=== PATIENT | female | born 1950 | race American Indian/Alaskan Native ===

== ENCOUNTER 2017-11-03 06:46 | Day surgery (SDC) | payer MEDICARE ==
[~2017-11-03 06:46] MED LIST: ANCEF/STERILE WATER 2 GM/20 ML IV NR; HEPARIN 10,000 UNITS/10 ML IV ONE; MARCAINE 0.25% INFILTRATI ONE; NACL 0.9% 250ML IV ONE; NACL 0.9% IR ONE
[2017-11-03] MEDS ORDERED: NACL BACTERIOSTATIC INFILTRATI ONE (07:44)
--- NOTE | 2017-11-03 07:48 | Anesthesia Consultation ---
Anesthesia Consult and Med Hx Date of service: 11/03/17 - Airway Anesthetic Teeth Evaluation: Good, Partials (top front partial) ROM Head & Neck: Adequate Mental/Hyoid Distance: Adequate Mallampati Class: Class I Intubation Access Assessment: Good - Pulmonary Exam CTA: Yes - Cardiac Exam Cardiac Exam: RRR - Pre-Operative Health Status ASA Pre-Surgery Classification: ASA3 Proposed Anesthetic Plan: General - Pulmonary Hx Sleep Apnea: Yes ("sometimes") - Cardiovascular System Hx Hypertension: Yes (2 years) - Central Nervous System Hx Psychiatric Problems: No - Endocrine Hx End Stage Renal Disease: Yes Hx Non-Insulin Dependent Diabetes: Yes - Hematic Hx Anemia: Yes - Other Systems Hx Alcohol Use: No Hx Substance Use: No Hx Cancer: No
--- NOTE | 2017-11-03 07:48 | Anesthesia Day of Surgery ---
Anesthesia Day of Surgery - Day of Surgery Patient Examined: Yes Patient H&P Reviewed: Yes Patient is NPO: Yes
[2017-11-03] MEDS ORDERED: VERSED IV NR (08:00)
[2017-11-03] MEDS ORDERED: NACL 0.9% 1000 ML 1,000 ML IV SCH (08:00)
[2017-11-03] MEDS ORDERED: PEPCID IV NR (08:00)
[2017-11-03] MEDS ORDERED: HEPARIN 10,000 UNITS/10 ML ONE (08:03)
[2017-11-03] MEDS ORDERED: NACL P/F VIAL (10 ML) 0 ML ONE (08:04)
[2017-11-03] MEDS ORDERED: NACL 0.9% 250ML 250 ML ONE (08:04)
[2017-11-03] MEDS ORDERED: MARCAINE 0.25% INFILTRATI ONE ×3 (08:05→09:08)
[2017-11-03 08:18] LABS: Hematocrit 28.5 % (30.3-42.9); Mean Corpuscular HGB Conc 32 % (30-34); Mean Corpuscular Volume 73 fl (79-97); Red Blood Count 3.92 M/mm3 (3.65-5.03); Red Cell Distribution Width 18.1 % (13.2-15.2); White Blood Count 6.7 K/mm3 (4.5-11.0)
[2017-11-03 08:28] LABS: Calcium 8.8 mg/dL (8.4-10.2); Chloride 106.1 mmol/L (98-107); Potassium 5.5 mmol/L (3.6-5.0)
[2017-11-03 08:30] LABS: Mean Corpuscular Hemoglobin 23 pg (28-32); Platelet Count 238 K/mm3 (140-440)
[2017-11-03] MEDS ORDERED: XYLOCAINE MPF 2% ONE (08:33)
[2017-11-03] MEDS ORDERED: ZEMURON IV ONE (08:33)
[2017-11-03] MEDS ORDERED: SUBLIMAZE ONE (08:35)
[2017-11-03] MEDS ORDERED: DIPRIVAN 10 MG/ML IV ONE ×2 (08:36→08:44)
[2017-11-03] MEDS ORDERED: NACL 0.9% 250ML IV ONE (09:18)
[2017-11-03] MEDS ORDERED: HEPARIN 10,000 UNITS/10 ML IV ONE (09:18)
[2017-11-03] MEDS ORDERED: NACL 0.9% IR ONE (09:54)
[2017-11-03] MEDS ORDERED: NEO SYNEPHRINE/NS Syringe(OR USE) IV ONE (10:00)
[2017-11-03] MEDS ORDERED: ROBINUL ONE (10:02)
[2017-11-03] MEDS ORDERED: NEOSTIGMINE ONE (10:02)
[2017-11-03 10:14] LABS: Basophils % (Manual) 0 % (0.0-1.8); Blastocytes % (Manual) 0 %; Eosinophils % (Manual) 0 % (0.0-4.3); Hypochromasia 1+
[2017-11-03 10:15] LABS: Anisocytosis 1+; Diff Status Complete
--- NOTE | 2017-11-03 10:15 | Operative Report ---
Operative Report Operative Report: Date of procedure: 11/03/2017 Pre-operative diagnosis: Chronic kidney disease stage V Post-operative diagnosis: Same Procedure name(s): Laparoscopic insertion of peritoneal dialysis catheter with omentopexy Surgeon: Saleem Torre MD Vp Celebrity Services: None Anesthesia: Gen., 0.25% Marcaine EBL: Minimal Complications: None Instrument Count: Correct Indications: This is a 67-year-old female with a history of chronic kidney disease stage V in need of dialysis access. She was offered the above named procedure is a possible modality to achieve this. The risks and benefits discussed until all questions were answered. She was subsequently brought to the OR. Findings: Adhesions to the midline and upper pelvis lower abdomen Procedure: We reviewed the informed consent. The patient was placed supine upon the table. After adequate anesthesia was reached, the patient was verified , then prepped and draped in usual sterile fashion. In the right upper quadrant and made a 5 mm incision. A Veress needle was placed through the incision and the abdomen was insufflated to 50 mmHg. At this time using Optiview technique we placed a 5 mm port through the incision. We introduced the camera and examined the abdomen. No injury was noted. Under direct vision , and after infiltration of local anesthetic, we placed another 5 mm epigastric port. Using sharp dissection and electrocautery, I lysed the adhesions to the upper pelvis/lower abdomen. Using a 2-0 Vicryl on a suture passer we draped the omentum over the Vicryl suture. This was tied to the anterior abdominal wall in the right upper quadrant, 2 fingerbreadths below the left costal margin creating an omentopexy at this location. We then measured a 55 cm peritoneal dialysis catheter so that the coil lay within the pelvis. A site was chosen just to the left of the umbilicus where we infiltrated local anesthetic. A 2 cm incision was made at this location. Dissection was carried down to the anterior layer of the rectus sheath where a small defect was made. A one-step 7 mm sheath Veress needle combination was placed through the defect and laparoscopically observed entering the abdomen the needle was removed leaving the sheath in place and the 7 mm port was placed through the sheath. The PD catheter was then threaded over a stylet and passed through the port and we visually observed coil settle within the pelvis at the midline. We positioned the distal cuff outside of the peritoneum and the proximal cuff anterior to the rectus sheath to lay in the subcutaneous fat. We tunneled the external portion of the catheter subcutaneously with the exit in the lower aspect of the left upper quadrant. The metal grommet and external PD transfer set were applied. All wounds were then closed using 4-0 Monocryl for the subcuticular layer. The 2 cm incision was closed at the subcutaneous level using a 3-0 Vicryl. All incisions were bandaged sterilely. The patient tolerated procedure well, was awakened, transferred to recovery room in no apparent distress.
--- NOTE | 2017-11-03 10:18 | Short Stay Summary ---
Short Stay Documentation Date of service: 11/03/17 - History H&P: dictated - Allergies and Medications Current Medications: Allergies No Known Allergies Allergy (Verified 11/01/17 18:04) Home Medications Medication Instructions Recorded Confirmed Last Taken Type Glimepiride [Amaryl] 4 mg PO DAILY 11/01/17 11/01/17 Unknown History Labetalol [Normodyne] 200 mg PO PRN PRN 11/01/17 11/01/17 Unknown History amLODIPine [Norvasc] 10 mg PO DAILY 11/01/17 11/03/17 11/02/17 History Active Medications Cefazolin Sodium (Ancef/Sterile Water 2 Gm/20 Ml) 2 gm IV PREOP NR Stop: 11/03/17 23:59 Famotidine (Pepcid) 20 mg IV PREOP NR Stop: 11/03/17 23:59 Sodium Chloride (Nacl 0.9% 1000 Ml) 1,000 mls @ 100 mls/hr IV DIRECT AUGUSTINE Midazolam HCl (Versed) 2 mg IV PREOP NR Stop: 11/03/17 23:59 - Brief post op/procedure progress note Date of procedure: 11/03/17 Pre-op diagnosis: chronic kidney disease stage V Post-op diagnosis: same Procedure: Laparoscopic insertion of peritoneal dialysis catheter with omentopexy Anesthesia: MARTI Surgeon: VLADIMIR TALAMANTES Estimated blood loss: minimal Pathology: none Condition: stable - Disposition Condition at discharge: Stable Disposition: DC-01 TO HOME OR SELFCARE Short Stay Discharge Plan Activity: no restrictions Diet: renal Wound: keep clean and dry, remove dressing (per dialysis center) Follow up with: [facility] [Other] - 7 Days VLADIMIR TALAMANTES MD [Staff Physician] - 7 Days Prescriptions: oxyCODONE /ACETAMINOPHEN [Percocet 5/325] 1 tab PO Q6HR PRN #20 tablet PRN Reason: Pain
[2017-11-03] MEDS ORDERED: DILAUDID ONE (10:30)
[2017-11-03] MEDS: DILAUDID IV NR ×2 (10:30→10:40)
[2017-11-03] MEDS ORDERED: ZOFRAN ONE (10:42)
[2017-11-03] MEDS ORDERED: DILAUDID IV PRN (11:00)
[2017-11-03] MEDS ORDERED: DILAUDID IV NR (11:00)
[2017-11-03] MEDS ORDERED: PERCOCET 5/325 PO PRN (11:00)
--- NOTE | 2017-11-03 13:17 | Post Anesthesia Evaluation ---
- Post Anesthesia Evaluation Patient Participated: Yes Airway Patent: Yes Stable Respiratory Function: Yes Nausea/Vomiting: No Temp > 96.8F: Yes Pain Manageable: Yes Adequeate Hydration: Yes Anesthesia Complications: No
[2017-11-03 16:23] VITALS: BP 139/67
== END 2017-11-03 12:58 | disposition home or self-care (01) ==
LOC: OR 06:46
PROVIDERS: ATTEND Surgery
DX: I12.0 Hypertensive chronic kidney disease with stage 5 chronic kidney disease or end stage renal disease (principal); E11.22 Type 2 diabetes mellitus with diabetic chronic kidney disease; N18.6 End stage renal disease; K66.0 Peritoneal adhesions (postprocedural) (postinfection); Z79.899 Other long term (current) drug therapy; Z90.710 Acquired absence of both cervix and uterus; Z98.890 Other specified postprocedural states
CPT/HCPCS: 36415; 49324; 49326; 80048; 82962; 85007; 85025; C1750; J0690; J1170; J1644; J2250; J2370; J2405; J2704; J2710; J3010; J7030; J7050